=== PATIENT | male | born 1955 | race African-American/Black ===

== ENCOUNTER 2016-10-19 13:34 | Emergency (ER) | payer OTHER ==
[~2016-10-19] VITALS: Ht 177.8 cm; Wt 74.8 kg
[~2016-10-19 13:34] MED LIST: ASPIR-LOW81 MG ORAL; AUGMENTIN 875-1 EAC1 ORAL; BACTRIM DS TAB1 EAC1 ORAL; CYCLOBENZAPRINE10 MG ORAL; FUROSEMIDE40 MG ORAL; GLIPIZIDE5 MG ORAL; IBUPROFEN600 MG ORAL; KEFLEX500 MG ORAL; LASIX20 M1 ORAL; METFORMIN HCL500 M1 ORAL; NORCO 5-325 TA1 EACH ORAL; POTASSIUM CHLO10 MEQ ORAL; SIMVASTATIN10 MG ORAL; SOMA250 MG PO; TYLENOL EXTRA500 MG ORAL; bp med
[2016-10-19 13:47] VITALS: BP 167/85
[2016-10-19] MEDS ORDERED: DEBROX15 M1 RIGHT EAR (14:03)
[2016-10-19] MEDS ORDERED: CORTISPORIN EAR10 ML RIGHT EAR (14:03)
[2016-10-19 14:09] VITALS: BP 163/82
--- NOTE | 2016-10-19 14:52 | Emergency Room Report ---
History of Present Illness General Chief Complaint: Earache Source: Patient Present Illness HPI The patient is a 61-year-old male presenting with right ear fullness and pain. The patient states that these sensations began one week prior. Pain is described as a 5/10 dull ache it is localized to the ear. The patient also feels as if he has a lot of earwax in the ear. The patient has tried over-the- counter medications for the cerumen impaction but does not remember the name. The patient denies any other symptoms including fever, chills, N, V, headache, dizziness, blurred vision Allergies: Coded Allergies: TRAMADOL (Unverified Allergy, Unknown, 04/26/15) Patient History Past Medical History: see triage record Pertinent Family History: none Reviewed Nursing Documentation: PMH: Agreed, PSxH: Agreed Nursing Documentation-PMH Past Medical History: No History, Except For Hx Hypertension: Yes Hx Diabetes: Yes Review of Systems All Other Systems: negative except mentioned in HPI Physical Exam Vital Signs Date Time Temp Pulse Resp B/P Pulse Ox O2 Delivery O2 Flow Rate FiO2 10/19/16 13:47 97.5 71 14 167/85 99 Room Air Sp02 EP Interpretation: reviewed, normal General Appearance: no apparent distress, alert, GCS 15, non-toxic Eyes: bilateral eye PERRL, bilateral eye normal inspection ENT: hearing grossly normal, normal pharynx, normal voice, uvula midline, moist mucus membranes, other - R ear cerumen impaction and EAC erythema Neck: full range of motion, supple/symm/no masses Musculoskeletal: back normal, gait/station normal, normal range of motion, non- tender Neurologic: alert, oriented x3, responsive, motor strength/tone normal, sensory intact, speech normal Psychiatric: judgement/insight normal, memory normal, mood/affect normal, no suicidal/homicidal ideation Skin: normal color, no rash, warm/dry, well hydrated Lymphatic: no adenopathy Medical Decision Making PA Attestation Dr. Perdomo is my supervising physician. Patient management was discussed with my supervising physician Diagnostic Impression: Primary Impression: Cerumen impaction Additional Impression: Otitis externa ER Course The patient is a 61-year-old male presenting with right ear fullness and pain Differential diagnosis include but not limited to otitis externa, otitis media, mastoiditis, sinusitis, pharyngitis, cerumen impaction Physical exam: Afebrile. No apparent distress. HEENT: There is radius or impaction. Visible external auditory canal is erythematous. Tenderness to palpation over the tragus. Otherwise exam is unremarkable The patient will be discharged home with prescription for the proximal and Cortisporin. ER precautions are given Last Vital Signs Date Time Temp Pulse Resp B/P Pulse Ox O2 Delivery O2 Flow Rate FiO2 10/19/16 14:09 97.5 71 14 163/82 99 Room Air Status: improved Disposition: HOME, SELF-CARE Condition: Improved Scripts Neomycin/Polymyxin B Sulf/Hc* (CORTISPORIN EAR SOLUTION*) 10 Ml Solution 4 DROP RIGHT EAR QID, #10 ML 0 Refills Prov: MARIA T GARCIA 10/19/16 Carbamide Peroxide (DEBROX) 15 Ml Drops 10 DROP RIGHT EAR TWICE A DAY for 4 Days, ML 0 Refills Prov: MARIA T GARCIA 10/19/16 Referrals: [facility],REFERR (PCP) Patient Instructions: Cerumen Impaction, Otitis Externa MARIA T GARCIA Oct 19, 2016 14:52
== END 2016-10-19 14:20 | disposition home or self-care (01) ==
LOC: EMR 14:02
DX: H61.21 Impacted cerumen, right ear (principal); H60.91 Unspecified otitis externa, right ear; I10 Essential (primary) hypertension; E11.9 Type 2 diabetes mellitus without complications; Z88.6 Allergy status to analgesic agent
CPT/HCPCS: 99284

== ENCOUNTER 2016-12-16 18:43 | Emergency (ER) | payer OTHER ==
[~2016-12-16] VITALS: Ht 177.8 cm; Wt 77.1 kg
[~2016-12-16 18:43] MED LIST changes: +CORTISPORIN EAR10 ML RIGHT EAR; +DEBROX15 M1 RIGHT EAR
[2016-12-16] MEDS ORDERED: Ketorolac 60mg Inj IM ONE (19:30)
[2016-12-16 19:56] LABS: APPEARANCE,URINE CLEAR; KETONES,URINE NEGATIVE (NEGATIVE); LEUKOCYTE ESTERASE ,URINE NEGATIVE (NEGATIVE); NITRITE,URINE NEGATIVE (NEGATIVE); PH,URINE 6.5 (4.5-8.0); PROTEIN,URINE NEGATIVE (NEGATIVE); UROBILINOGEN,URINE NORMAL MG/DL (0.0-1.0)
[2016-12-16 20:05] LABS: WBC,URINE 0-2 /HPF (0 - 0)
--- NOTE | 2016-12-16 20:23 | Emergency Room Report ---
History of Present Illness General Chief Complaint: Pain Source: Patient Present Illness HPI 61-year-old male presents emergency department complaining of pain to the left flank area times one week. Patient states that when he is sitting not moving his pain is 5/10 in severity however upon forward flexion or twisting of the trunk his pain is exacerbated to 10 out of 10 in severity. Palpation also exacerbates his pain. Patient denies fall or trauma. Patient reports urinary frequency and states that he typically has urinated 6 times during the night for approximately 1 year. Patient denies fevers chills, hematuria, dysuria. Patient reports history of diabetes and high blood pressure. he describes this pain as constant and aching and during exacerbation sharp in nature. Patient states that the pain does not go away. patient denies abdominal pain. Denies CP , Palpitations, LOC, AMS, dizziness, Changes in Vision, Sensation, paresthesias , or a sudden severe headache. Pt states he had his prostate checked at last pcp appt. and was WNL. pt. also reports well controled DM. no polydipsia, abdominal pain or AMS, or N/V. Allergies: Coded Allergies: TRAMADOL (Unverified Allergy, Unknown, 04/26/15) Patient History Past Medical History: see triage record Past Surgical History: none Pertinent Family History: none, HTN, DM Immunizations: UTD Reviewed Nursing Documentation: PMH: Agreed, PSxH: Agreed Nursing Documentation-PMH Past Medical History: No History, Except For Hx Hypertension: Yes Hx Diabetes: Yes Review of Systems All Other Systems: negative except mentioned in HPI Physical Exam Vital Signs Date Time Temp Pulse Resp B/P Pulse Ox O2 Delivery O2 Flow Rate FiO2 12/16/16 18:54 97.5 55 16 149/80 100 Room Air Sp02 EP Interpretation: reviewed, normal General Appearance: no apparent distress, alert, GCS 15, non-toxic Head: normocephalic, atraumatic Eyes: bilateral eye PERRL, bilateral eye normal inspection ENT: hearing grossly normal, normal pharynx, no angioedema, normal voice Neck: full range of motion, supple/symm/no masses Respiratory: lungs clear, normal breath sounds, speaking full sentences Cardiovascular #1: regular rate, rhythm, no edema Gastrointestinal: normal bowel sounds, non tender, soft, no guarding, no rebound Rectal: deferred Genitourinary: normal inspection, no CVA tenderness Musculoskeletal: back normal, gait/station normal, normal range of motion, tender - left paraspinal TTP, FROM with pain of flexion and twisting of the trunk, no erythema, bruising or evidence of infection, no midline ttp. Neurologic: alert, oriented x3, responsive, motor strength/tone normal, sensory intact, speech normal Psychiatric: judgement/insight normal, memory normal, mood/affect normal Skin: normal color, no rash, warm/dry, well hydrated Medical Decision Making PA Attestation Dr. Perdomo is my supervising Physician whom patient management has been discussed with. Diagnostic Impression: Primary Impression: Muscle strain Additional Impression: Frequency of urination ER Course 61-year-old male presents emergency department complaining of pain to the left flank area times one week. Patient states that when he is sitting not moving his pain is 5/10 in severity however upon forward flexion or twisting of the trunk his pain is exacerbated to 10 out of 10 in severity. Palpation also exacerbates his pain. Patient denies fall or trauma. Patient reports urinary frequency and states that he typically has urinated 6 times during the night. Patient denies fevers chills, hematuria, dysuria. Patient reports history of diabetes and high blood pressure. he describes this pain as constant and aching and during exacerbation sharp in nature. Patient states that the pain does not go away. patient denies abdominal pain. Pt states he had his prostate checked at last pcp appt. and was WNL. Ddx considered but are not limited to Muscle strain, kidney stone, pyelonephritis, UTI, obstruction. DM Vital signs: are WNL, pt. is afebrile H&PE are most consistent with Muscle strain will do UA to evaluate for UTI, renal stone is of low suspicion due to description of pain character, and PE demonstrated superficial muscular TTP. pain is also non radiating. ORDERS: - UA: no evidence of infection, few rbc, no wbc's ED INTERVENTIONS: -- Toradol IM -Tylenol PO d/w pt. the ddx's considered and that PE suggests muscular strain over stone, also discussed lab results. d/w pt. follow up instructions. D/w pt. conservative treatment, and to returning with worsening or new symptoms. DISCHARGE: At this time pt. is stable for d/c to home. Will provide printed patient care instructions, and any necessary prescriptions. Care plan and follow up instructions have been discussed with the patient prior to discharge. Labs Test 12/16/16 19:00 Urine Color Pale yellow Urine Appearance Clear Urine pH 6.5 (4.5-8.0) Urine Specific [place] 1.010 (1.005-1.035) Urine Protein Negative (NEGATIVE) Urine Glucose (UA) Negative (NEGATIVE) Urine Ketones Negative (NEGATIVE) Urine Occult Blood 2+ (NEGATIVE) Urine Nitrite Negative (NEGATIVE) Urine Bilirubin Negative (NEGATIVE) Urine Urobilinogen Normal MG/DL (0.0-1.0) Urine Leukocyte Esterase Negative (NEGATIVE) Urine RBC 5-10 /HPF (0 - 0) Urine WBC 0-2 /HPF (0 - 0) Urine Squamous Epithelial Cells None /LPF (NONE/OCC) Urine Bacteria None /HPF (NONE) Last Vital Signs Date Time Temp Pulse Resp B/P Pulse Ox O2 Delivery O2 Flow Rate FiO2 12/16/16 20:09 97.5 12/16/16 18:54 55 16 149/80 100 Room Air Disposition: HOME, SELF-CARE Condition: Stable Scripts Ibuprofen* (MOTRIN*) 600 Mg Tablet 600 MG ORAL THREE TIMES A DAY, #20 TAB 0 Refills Prov: Grace Donald 12/16/16 Cyclobenzaprine Hcl* (FLEXERIL*) 10 Mg Tablet 10 MG ORAL THREE TIMES A DAY for 7 Days, #21 TAB Prov: Grace Donald 12/16/16 Referrals: [facility] (PCP) Patient Instructions: Muscle Strain, Urinary Frequency Additional Instructions: Take medications as directed. Follow up with PCP in 3-5 days Return sooner to ED if new symptoms occur, or current symptoms become worse. Do not drink alcohol, drive, or operate heavy machinery while taking Flexeril as this may cause drowsiness. - Please note that this Emergency Department Report was dictated using [employer] master technology software, occasionally this can lead to erroneous entry secondary to interpretation by the dictation equipment. Grace Donald Dec 16, 2016 20:23
[2016-12-16] MEDS ORDERED: CYCLOBENZAPRINE10 MG ORAL (20:24)
[2016-12-16] MEDS ORDERED: IBUPROFEN600 MG ORAL (20:24)
[2016-12-16 20:30] VITALS: BP 149/80
== END 2016-12-16 20:30 | disposition home or self-care (01) ==
LOC: EMR 19:18
DX: R10.9 Unspecified abdominal pain (principal); T14.8 Other injury of unspecified body region; X58.XXXA Exposure to other specified factors, initial encounter; Y93.9 Activity, unspecified; Y92.9 Unspecified place or not applicable; R35.0 Frequency of micturition; Z88.8 Allergy status to other drugs, medicaments and biological substances; I10 Essential (primary) hypertension; E11.9 Type 2 diabetes mellitus without complications
CPT/HCPCS: 81003; 96372; 99284

== ENCOUNTER 2017-04-19 09:46 | Emergency (ER) | payer OTHER ==
[~2017-04-19] VITALS: Ht 177.8 cm; Wt 77.1 kg
[2017-04-19 10:12] VITALS: BP 128/76
[2017-04-19] MEDS ORDERED: Lidocaine 1% MPF 10mg/ml 5ml ONE (10:29)
[2017-04-19] MEDS ORDERED: DOXYCYCLINE MO100 MG ORAL (10:31)
[2017-04-19 10:41] VITALS: BP 128/76
--- NOTE | 2017-04-19 14:25 | Emergency Room Report ---
History of Present Illness General Chief Complaint: Male Urogenital Problems Source: Patient Present Illness HPI 62-year-old male presents to ED for evaluation. States that he was be checked for STD. States she is having dysuria and discharge. States that his girlfriend has been recently treated for PID. Denies fevers or chills. Denies any testicular pain. No aggravating relieving factors. Denies any other associated symptoms Allergies: Coded Allergies: TRAMADOL (Unverified Allergy, Unknown, 04/26/15) Patient History Past Medical History: DM, HTN Past Surgical History: none Pertinent Family History: none Social History: Denies: alcohol use, drug use, smoking Immunizations: UTD Reviewed Nursing Documentation: PMH: Agreed, PSxH: Agreed Nursing Documentation-PMH Hx Hypertension: Yes Hx Diabetes: Yes Review of Systems All Other Systems: negative except mentioned in HPI Physical Exam Vital Signs Date Time Temp Pulse Resp B/P Pulse Ox O2 Delivery O2 Flow Rate FiO2 04/19/17 09:57 97.9 66 16 131/77 99 Room Air Sp02 EP Interpretation: reviewed, normal General Appearance: no apparent distress, alert, GCS 15, non-toxic Head: normocephalic, atraumatic Eyes: bilateral eye PERRL, bilateral eye normal inspection ENT: hearing grossly normal, normal pharynx, no angioedema, normal voice Neck: full range of motion, supple/symm/no masses Respiratory: chest non-tender, lungs clear, normal breath sounds, speaking full sentences Cardiovascular #1: regular rate, rhythm, no edema Cardiovascular #2: 2+ carotid (R), 2+ carotid (L), 2+ radial (R), 2+ radial (L) , 2+ dorsalis pedis (R), 2+ dorsalis pedis (L) Gastrointestinal: normal bowel sounds, non tender, soft, non-distended, no guarding, no rebound Rectal: deferred Genitourinary: normal inspection, no CVA tenderness Musculoskeletal: back normal, gait/station normal, normal range of motion, non- tender Neurologic: alert, oriented x3, responsive, motor strength/tone normal, sensory intact, speech normal Psychiatric: judgement/insight normal, memory normal, mood/affect normal, no suicidal/homicidal ideation Reflexes: 3+ bicep (R), 3+ bicep (L), 3+ tricep (R), 3+ tricep (L), 3+ knee (R) , 3+ knee (L) Skin: normal color, no rash, warm/dry, well hydrated Lymphatic: no adenopathy Medical Decision Making Diagnostic Impression: Primary Impression: Urethritis ER Course 62-year-old male who presents to ED requesting STD testing. Patient placed on stretcher. After initial history and physical I ordered Rocephin IM injection. Patient will be discharged on doxycycline. I explained to patient that we treat clinically based on symptoms. Recommended followup with STD clinic. Diagnosis urethritis Stable discharged to home with prescription for doxycycline. Followup with PMD. Return to ED if symptoms recur or worsen Last Vital Signs Date Time Temp Pulse Resp B/P Pulse Ox O2 Delivery O2 Flow Rate FiO2 04/19/17 10:41 98.1 69 15 128/76 98 Room Air Status: improved Disposition: HOME, SELF-CARE Condition: Stable Scripts Doxycycline Monohydrate* (DOXYCYCLINE MONOHYDRATE*) 100 Mg Capsule 100 MG ORAL Q12H for 14 Days, CAP 0 Refills Prov: RADHA LARA M.D. 04/19/17 Patient Instructions: Urethritis, Adult RADHA LARA M.D. Apr 19, 2017 14:25
== END 2017-04-19 10:43 | disposition home or self-care (01) ==
LOC: EMR 10:18
DX: N34.2 Other urethritis (principal); Z88.8 Allergy status to other drugs, medicaments and biological substances; E11.9 Type 2 diabetes mellitus without complications; I10 Essential (primary) hypertension
CPT/HCPCS: 96374; 99284; J0696

== ENCOUNTER 2018-10-26 16:26 | Emergency (ER) | payer OTHER ==
[~2018-10-26] VITALS: Ht 180.3 cm; Wt 77.1 kg
[~2018-10-26 16:26] MED LIST changes: +DOXYCYCLINE MO100 MG ORAL
--- NOTE | 2018-10-26 16:52 | NUR ---
ED Nurse Note: Urine sent to lab.
[2018-10-26 17:00] VITALS: BP 132/76
--- NOTE | 2018-10-26 17:00 | NUR ---
ED Nurse Note: Pt came in due to increased urinary frequency and dry mouth x 1 month. Pt has hx of DM. Pt is AAO x4, ambulatory with non labored breathing.
--- NOTE | 2018-10-26 17:20 | Emergency Room Report ---
History of Present Illness General Chief Complaint: Male Urogenital Problems Source: Patient (Juve Trejo) Source: Patient (Khurram Wiggins MD) Present Illness HPI 63-year-old male patient presents the ER complaining of increased urinary frequency and dry mouth. Patient reports history of diabetes, states he has not been taking his medications as instructed. States that he normally takes metformin for diabetes symptoms. Reports diabetes is not well controlled however patient did not give adequate reasons why he is not taking his medications. Denies dysuria, hematuria. Denies penile discharge. Denies recent sexual activity. Reports history of drug use, states last took drug yesterday, states he took cocaine. Denies fever, chest pain, shortness of breath, abdominal pain, flank pain. Denies vomiting or diarrhea. (Juve Trejo) HPI Patient is a 63-year-old male presented for increased thirst and generalized weakness. Patient noted to have increased urine frequency. Patient prior history of diabetes but a been off of his medications for several days. Patient reports having no chest pain or shortness of breath. He was noted to have prior history of diabetes but has been noncompliant with his metformin and other medications. (Khurram Wiggins MD) Allergies: Coded Allergies: TRAMADOL (Unverified Allergy, Unknown, 10/26/18) Patient History Past Medical History: see triage record Reviewed Nursing Documentation: PMH: Agreed; PSxH: Agreed (Juve Trejo) Past Medical History: see triage record Reviewed Nursing Documentation: PMH: Agreed; PSxH: Agreed (Khurram Wiggins MD) Nursing Documentation-PMH Past Medical History: No History, Except For Hx Hypertension: Yes Hx Diabetes: Yes (Juve Trejo) Review of Systems All Other Systems: negative except mentioned in HPI (Juve Trejo) All Other Systems: negative except mentioned in HPI (Khurram Wiggins MD) Physical Exam Vital Signs Date Time Temp Pulse Resp B/P (MAP) Pulse Ox O2 Delivery O2 Flow Rate FiO2 10/26/18 16:40 97.7 92 18 136/80 94 Room Air Sp02 EP Interpretation: reviewed, normal General Appearance: well appearing, no apparent distress, alert, GCS 15, non- toxic Head: normocephalic, atraumatic Eyes: bilateral eye normal inspection, bilateral eye PERRL ENT: hearing grossly normal, normal pharynx, no angioedema, normal voice, uvula midline, moist mucus membranes Neck: full range of motion Respiratory: lungs clear, normal breath sounds, no rhonchi, no respiratory distress, no accessory muscle use, no wheezing, speaking full sentences Cardiovascular #1: regular rate, rhythm, no edema Gastrointestinal: non tender, soft, no mass, non-distended, no guarding, no rebound Genitourinary: no CVA tenderness Neurologic: alert, oriented x3, responsive, motor strength/tone normal, sensory intact Psychiatric: mood/affect normal Skin: no rash Lymphatic: no adenopathy (Juve Trejo.AEmily) Sp02 EP Interpretation: reviewed, normal General Appearance: normal inspection, well appearing, no apparent distress, alert, GCS 15 Head: atraumatic ENT: normal ENT inspection, hearing grossly normal, normal voice Neck: normal inspection, full range of motion, supple, no bony tend Respiratory: normal inspection, lungs clear, normal breath sounds, no respiratory distress, no retraction, no wheezing Cardiovascular #1: regular rate, rhythm, no edema, edema - right lower extremity edema, left side normal Gastrointestinal: normal inspection, normal bowel sounds, non tender, soft, no guarding, no hernia Genitourinary: no CVA tenderness Musculoskeletal: normal inspection, back normal, normal range of motion Neurologic: normal inspection, alert, oriented x3, responsive, financial sales advisor III-XII nml as tested, speech normal Psychiatric: normal inspection, judgement/insight normal, mood/affect normal Skin: normal inspection, normal color, no rash (Khurram Wiggins MD) Medical Decision Making PA Attestation Dr. Wiggins is my supervising Physician whom patient management has been discussed with. (Juve Trejo P.AEmily) Diagnostic Impression: Primary Impression: Uncontrolled diabetes mellitus Additional Impressions: Acute renal insufficiency Dehydration ER Course Endorsed to me by physician environmental emergencies assistant see his note for full HPI. Patient is a 63 -year-old male presented for increased generalized weakness. Differential diagnosis include was not limited to hyperglycemia, myocardial infarction, renal failure, hypokalemia among others. Patient's laboratory testing was notable for markedly elevated blood sugar. Patient was given IV fluids as well as IV insulin. Patient was noted to have adequate mental status and has a nonfocal neurologic exam. Patient was noted to have some significant right lower extremity swelling which he states he has had previously workup at [facility].Patient was noted to have some right-sided edema only. Patient was noted to have continued normal mental status.Patient was discussed with Dr. Esteban case #[id number] Labs Test 10/26/18 18:15 10/26/18 18:30 White Blood Count 7.0 K/UL (4.8-10.8) Red Blood Count 5.93 M/UL (4.70-6.10) Hemoglobin 17.8 G/DL (14.2-18.0) Hematocrit 55.4 % (42.0-52.0) Mean Corpuscular Volume 93 FL (80-99) Mean Corpuscular Hemoglobin 30.0 PG (27.0-31.0) Mean Corpuscular Hemoglobin Concent 32.1 G/DL (32.0-36.0) Red Cell Distribution Width 12.0 % (11.6-14.8) Platelet Count 199 K/UL (150-450) Mean Platelet Volume 8.7 FL (6.5-10.1) Neutrophils (%) (Auto) 66.8 % (45.0-75.0) Lymphocytes (%) (Auto) 24.1 % (20.0-45.0) Monocytes (%) (Auto) 7.4 % (1.0-10.0) Eosinophils (%) (Auto) 0.5 % (0.0-3.0) Basophils (%) (Auto) 1.4 % (0.0-2.0) Sodium Level 127 MMOL/L (136-145) Potassium Level 5.3 MMOL/L (3.5-5.1) Chloride Level 92 MMOL/L (98-107) Carbon Dioxide Level 25 MMOL/L (21-32) Anion Gap 10 mmol/L (5-15) Blood Urea Nitrogen 34 mg/dL (7-18) Creatinine 2.5 MG/DL (0.55-1.30) Estimat Glomerular Filtration Rate 32.0 mL/min (>60) Glucose Level 804 MG/DL (74-106) Calcium Level 10.3 MG/DL (8.5-10.1) Total Bilirubin 0.5 MG/DL (0.2-1.0) Aspartate Amino Transf (AST/SGOT) 36 U/L (15-37) Alanine Aminotransferase (ALT/SGPT) 37 U/L (12-78) Alkaline Phosphatase 98 U/L (46-116) Troponin I 0.020 ng/mL (0.000-0.056) Total Protein 8.1 G/DL (6.4-8.2) Albumin 4.0 G/DL (3.4-5.0) Globulin 4.1 g/dL Albumin/Globulin Ratio 1.0 (1.0-2.7) Urine Color Pale yellow Urine Appearance Clear Urine pH 6 (4.5-8.0) Urine Specific [place] 1.010 (1.005-1.035) Urine Protein Negative (NEGATIVE) Urine Glucose (UA) 4+ (NEGATIVE) Urine Ketones 1+ (NEGATIVE) Urine Blood 2+ (NEGATIVE) Urine Nitrite Negative (NEGATIVE) Urine Bilirubin Negative (NEGATIVE) Urine Urobilinogen Normal MG/DL (0.0-1.0) Urine Leukocyte Esterase Negative (NEGATIVE) Urine RBC 2-4 /HPF (0 - 0) Urine WBC 0-2 /HPF (0 - 0) Urine Squamous Epithelial Cells None /LPF (NONE/OCC) Urine Bacteria Few /HPF (NONE) (Khurram Wiggins MD) EKG Diagnostic Results Rate: normal - 82 Rhythm: NSR ST Segments: no acute changes (Khurram Wiggins MD) Last Vital Signs Date Time Temp Pulse Resp B/P (MAP) Pulse Ox O2 Delivery O2 Flow Rate FiO2 10/26/18 17:00 98.0 86 17 132/76 96 Room Air (Juve Trejo P.AEmily) Status: improved (Khurram Wiggins MD) Disposition: XFER [facility]M HOSP Condition: Stable Juve Trejo P.AEmily Oct 26, 2018 17:20 Khurram Wiggins MD Oct 26, 2018 20:19
--- NOTE | 2018-10-26 17:30 | NUR ---
HAND-OFF: Report given to Anand HAZEL.
[2018-10-26 17:38] LABS: APPEARANCE,URINE CLEAR; BILIRUBIN, URINE NEGATIVE (NEGATIVE); COLOR,URINE PALE YELLOW; GLUCOSE, URINE (UA) 4+ (NEGATIVE); KETONES,URINE 1+ (NEGATIVE); LEUKOCYTE ESTERASE ,URINE NEGATIVE (NEGATIVE); NITRITE,URINE NEGATIVE (NEGATIVE); PH,URINE 5 (4.5-8.0); PROTEIN,URINE NEGATIVE (NEGATIVE); UROBILINOGEN,URINE NORMAL MG/DL (0.0-1.0)
[2018-10-26 18:47] LABS: BASOPHILS % (AUTO) 1.4 % (0.0-2.0); EOSINOPHILS % (AUTO) 0.5 % (0.0-3.0); HEMATOCRIT 55.4 % (42.0-52.0); HEMOGLOBIN 17.8 G/DL (14.2-18.0); LYMPHOCYTES % (AUTO) 24.1 % (20.0-45.0); MEAN CORPUSCULAR VOLUME 93 FL (80-99); MONOCYTES % (AUTO) 7.4 % (1.0-10.0); NEUTROPHILS % (AUTO) 66.8 % (45.0-75.0); PLATELET COUNT 199 K/UL (150-450); RED BLOOD COUNT 5.93 M/UL (4.70-6.10)
[2018-10-26 18:47] LABS: APPEARANCE,URINE CLEAR; BILIRUBIN, URINE NEGATIVE (NEGATIVE); COLOR,URINE PALE YELLOW; GLUCOSE, URINE (UA) 4+ (NEGATIVE); KETONES,URINE 1+ (NEGATIVE); LEUKOCYTE ESTERASE ,URINE NEGATIVE (NEGATIVE); NITRITE,URINE NEGATIVE (NEGATIVE); PH,URINE 6 (4.5-8.0); PROTEIN,URINE NEGATIVE (NEGATIVE); UROBILINOGEN,URINE NORMAL MG/DL (0.0-1.0)
[2018-10-26 18:51] LABS: ANION GAP 10 mmol/L (5-15); BLOOD UREA NITROGEN 34 mg/dL (7-18); CALCIUM 10.3 MG/DL (8.5-10.1); CARBON DIOXIDE 25 MMOL/L (21-32); CHLORIDE 92 MMOL/L (98-107); CREATININE 2.5 MG/DL (0.55-1.30); POTASSIUM 5.3 MMOL/L (3.5-5.1); SODIUM 127 MMOL/L (136-145)
[2018-10-26 18:54] LABS: ALANINE AMINOTRANSFERASE 37 U/L (12-78); ASPARTATE AMINO TRANSFERASE 36 U/L (15-37); BILIRUBIN,TOTAL 0.5 MG/DL (0.2-1.0)
[2018-10-26 18:55] LABS: ALKALINE PHOSPHATASE 98 U/L (46-116)
[2018-10-26] MEDS ORDERED: Insulin Human Regular 100units/ml 3ml IV ONE (19:00)
--- NOTE | 2018-10-26 19:16 | NUR ---
HAND-OFF: Report given to YASEMIN Larkin.
--- NOTE | 2018-10-26 19:17 | NUR ---
ED Nurse Note: Received report from Anand/YASEMIN. Pt is A/O X 4. [facility] for transfer to [place].
[2018-10-26] MEDS ORDERED: LOSARTAN POTASS50 MG ORAL (19:45)
[2018-10-26] MEDS ORDERED: ATORVASTATIN CA40 MG ORAL (19:45)
[2018-10-26 20:53] VITALS: BP 131/72
--- NOTE | 2018-10-26 20:53 | NUR ---
TRANSFER to [facility]: Patient transferred to [facility] as ordered by Ambulance . Report given to EMS. Belongings sent with Pt. Pt is A/O X4. VSS.
--- NOTE | 2018-10-27 15:53 | Cardiology Report ---
APPROVED REPORT EKG Measurement Heart [id number] Normal sinus rhythm Right atrial enlargement Incomplete right bundle branch block Left anterior fascicular block Abnormal ECG
== END 2018-10-26 20:53 | disposition short-term general hospital (02) ==
LOC: EMR 16:59
DX: E11.65 Type 2 diabetes mellitus with hyperglycemia (principal); Z79.84 Long term (current) use of oral hypoglycemic drugs; N28.9 Disorder of kidney and ureter, unspecified; E86.0 Dehydration; I10 Essential (primary) hypertension; Z88.6 Allergy status to analgesic agent
CPT/HCPCS: 36415; 80053; 81001; 81003; 82962; 84484; 85025; 93005; 96361; 96374; 99284; J1815

== ENCOUNTER 2019-02-17 08:21 | Emergency (ER) | payer MEDICAID, OTHER ==
[~2019-02-17] VITALS: Ht 177.8 cm; Wt 77.1 kg
[~2019-02-17 08:21] MED LIST changes: +ATORVASTATIN CA40 MG ORAL; +LOSARTAN POTASS50 MG ORAL
[2019-02-17 08:40] VITALS: BP 108/75
--- NOTE | 2019-02-17 09:09 | Emergency Room Report ---
History of Present Illness General Chief Complaint: Male Urogenital Problems Source: Patient Present Illness HPI The patient was seen 3 days ago [facility] for urinary retention. A Flores catheter was placed at that time. He has been feeling well without issue. However, he was supposed to follow-up with a urologist for the catheter to be removed but has not. He also was unable to fill one particular medication , Flomax. He has not been on this medication. The patient states he is [facility] and cannot see a [place] urologist. He is requesting information for a urologist that takes [facility]. He denies fever or chills. He denies pain. He denies nausea or vomiting. He has no other complaints. Allergies: Coded Allergies: TRAMADOL (Unverified Allergy, Unknown, 10/26/18) Patient History Past Medical History: DM, HTN, other - HLP, BPH Social History: Denies: smoking, alcohol use, drug use Reviewed Nursing Documentation: PMH: Agreed; PSxH: Agreed Nursing Documentation-PM Past Medical History: No History, Except For Hx Hypertension: Yes Hx Diabetes: Yes Review of Systems All Other Systems: negative except mentioned in HPI Physical Exam Vital Signs Date Time Temp Pulse Resp B/P (MAP) Pulse Ox O2 Delivery O2 Flow Rate FiO2 02/17/19 08:27 97.5 77 16 108/75 (86) 97 Room Air Sp02 EP Interpretation: reviewed, normal General Appearance: no apparent distress, alert, GCS 15, non-toxic Head: normocephalic, atraumatic ENT: hearing grossly normal, normal pharynx, no angioedema, normal voice Neck: normal inspection Respiratory: no respiratory distress, no retraction, no accessory muscle use, speaking full sentences Rectal: deferred Genitourinary: normal inspection, other - Leg bag flores catheter in place. Musculoskeletal: back normal, gait/station normal, normal range of motion, non- tender, calf tenderness Neurologic: alert, oriented x3, responsive, motor strength/tone normal, sensory intact, speech normal Psychiatric: judgement/insight normal, memory normal, mood/affect normal, no suicidal/homicidal ideation Skin: normal color, no rash, warm/dry, well hydrated Medical Decision Making Diagnostic Impression: Primary Impression: Urinary retention ER Course This patient has urinary retention. Unfortunately, he did not fill the Flomax which will help this patient urinate spontaneously. I will prescribe the Flomax for this patient at the pharmacy directed across the street so that the patient can start the medications. The patient was also given a local comprehensive outpatient clinic that takes [facility] and has resources for all the specialties to include urology. At this time, I did not have the catheter removed for concerned that the urinary retention will recur. I instructed the patient to follow-up closely with the urologist and at this local complaints of clinic for reevaluation in 72 hours. Last Vital Signs Date Time Temp Pulse Resp B/P (MAP) Pulse Ox O2 Delivery O2 Flow Rate FiO2 02/17/19 08:40 97.5 77 16 108/75 97 Room Air Disposition: HOME, SELF-CARE Condition: Stable Referrals: NOT CHOSEN IPA/,REFERRING (PCP) Magdalene Hernandez DO Feb 17, 2019 09:09
[2019-02-17] MEDS ORDERED: FLOMAX0.4 MG ORAL ×2 (09:16→10:14)
[2019-02-17 09:27] VITALS: BP 108/75
== END 2019-02-17 09:28 | disposition home or self-care (01) ==
LOC: EMR 08:48
DX: R33.9 Retention of urine, unspecified (principal); I10 Essential (primary) hypertension; E11.9 Type 2 diabetes mellitus without complications; Z88.5 Allergy status to narcotic agent
CPT/HCPCS: 99282